=== PATIENT | female | born 1965 | race Caucasian/White ===

== ENCOUNTER 2020-04-01 19:34 | Emergency (ER) | payer BC ==
[2020-04-01] MEDS ORDERED: DUONEB 0.5-3 MG/3 ml Neb IH ONE (19:54)
--- NOTE | 2020-04-01 20:12 | ERPHSYRPT ---
- History of Present Illness Time Seen by Provider: 04/01/20 19:50 Source: patient Exam Limitations: no limitations Patient Subjective Stated Complaint: PT C/O COUGH, SOB, CHOKING, SWOLLEN EYELIDS DUE TO OUTDOOR ALLERGIES Triage Nursing Assessment: PT ARRIVED VIA AMBULANCE WITH C/O COUGH, CHOKING, SOB, RED FACE AND SWOLLEN EYELIDS DUE TO BEING OUTSIDE AND HAS ALLERGIES TO BIRCH TREES/NUT TREES. LUNGS CLEAR, HEART TONES REG Physician History: Patient is a 55-year-old female presents to our ED via EMS for evaluation of an allergic reaction. Patient has a allergy to nuts. Patient states she was exposed to nuts today. She was having difficulty breathing. Patient called EMS. EMS administered Benadryl and 125 mg of Solu-Medrol. Patient symptoms dramatically improved. Upon arrival patient was breathing much easier. Her facial swelling had improved. Patient was initially reported to be wheezing. No wheezing upon arrival. Patient is experiencing a dry cough. Patient attributes this to the allergic reaction. Patient was not coughing prior to the exposure. Patient was experiencing shortness of breath as well. This is also significantly improved. Patient symptoms are gradually improving. Symptoms are now mild to moderate intensity. No specific worsening or improving factors. Patient voices no other complaints at this time. Timing/Duration: today Severity: moderate Modifying Factors: Improves With: medication, other (Solu-Medrol and Benadryl improved patient symptomology.) Associated Symptoms: shortness of breath (Shortness of breath), cough (Cough), No nausea, No vomiting, No abdominal pain (No abdominal pain), No diaphoresis, No chest pain (No fevers no chest pain), No fever, No loss of appetite, No malaise, No rash, No syncope, No seizure, No weakness Allergies/Adverse Reactions: birch Allergy (Severe, Verified 04/01/20 19:58) Difficulty Breathing nut - unspecified Allergy (Severe, Verified 04/01/20 19:58) Difficulty Breathing mold Allergy (Severe, Uncoded 04/01/20 20:06) Difficulty Breathing TREES Adverse Reaction (Uncoded 04/01/20 20:06) Difficulty Breathing BIRCH TREES AND NUT TREES Home Medications: Lisinopril/Hydrochlorothiazide [Lisinopril-Hctz 10-12.5 mg Tab] 1 tab PO DAILY 03/14/14 [History] Insulin NPH Human Isophane [Novolin N] 70 units SQ HS 04/01/20 [History] Insulin Regular, Human [Novolin R] 30 units SQ TIDAC 04/01/20 [History] NPH, Human Insulin Isophane [Novolin N] 20 units SQ DAILY 04/01/20 [History] Rosuvastatin Calcium 10 mg PO HS 04/01/20 [History] Hx Tetanus, Diphtheria Vaccination/Date Given: No Hx Influenza Vaccination/Date Given: No Hx Pneumococcal Vaccination/Date Given: No Immunizations Up to Date: No Travel Risk - International Travel Have you traveled outside of the country in past 3 weeks: No - Coronavirus Screening Are you exhibiting any of the following symptoms?: No Close contact with a COVID-19 positive Pt in past 14-21 Days: No - Review of Systems Constitutional: No Symptoms, No Fever, No Chills Eyes: No Symptoms Ears, Nose, & Throat: No Symptoms Respiratory: No Symptoms, No Cough, No Dyspnea Cardiac: No Symptoms, No Chest Pain, No Edema, No Syncope Abdominal/Gastrointestinal: No Symptoms, No Abdominal Pain, No Nausea, No Vomiting, No Diarrhea Genitourinary Symptoms: No Symptoms, No Dysuria Musculoskeletal: No Symptoms, No Back Pain, No Neck Pain Skin: No Symptoms, No Rash Neurological: No Symptoms, No Dizziness, No Focal Weakness, No Sensory Changes Psychological: No Symptoms Endocrine: No Symptoms Hematologic/Lymphatic: No Symptoms Immunological/Allergic: No Symptoms All Other Systems: Reviewed and Negative - Past Medical History Pertinent Past Medical History: Yes Neurological History: Migraines ENT History: No Pertinent History Cardiac History: Angina, Hypertension Respiratory History: No Pertinent History Endocrine Medical History: Diabetes Type II Musculoskeletal History: Rheumatoid Arthritis GI Medical History: No Pertinent History History: No Pertinent History Psycho-Social History: No Pertinent History Female Reproductive Disorders: No Pertinent History - Past Surgical History Past Surgical History: Yes Neuro Surgical History: No Pertinent History Cardiac: No Pertinent History Respiratory: No Pertinent History Gastrointestinal: No Pertinent History Genitourinary: No Pertinent History Musculoskeletal: Orthopedic Surgery Female Surgical History: Section, Hysterectomy Other Surgical History: carpel tunnel-left hand, - Social History Smoking Status: Never smoker Exposure to second hand smoke: Yes Drug Use: none Patient Lives Alone: No - Female History Hx Now: No - Nursing Vital Signs Nursing Vital Signs: Initial Vital Signs Temperature 98.3 F 04/01/20 19:45 Pulse Rate 125 H 04/01/20 19:45 Respiratory Rate 19 04/01/20 19:45 Blood Pressure 193/82 04/01/20 19:45 O2 Sat by Pulse Oximetry 94 L 04/01/20 19:45 Pain Scale Pain Intensity 0 - Physical Exam General Appearance: no apparent distress, alert, obese, other (Patient has swelling around her eyes. Patient looks flushed.) Eye Exam: PERRL/EOMI, eyes nml inspection Ears, Nose, Throat Exam: normal ENT inspection, TMs normal, pharynx normal, moist mucous membranes Neck Exam: normal inspection, non-tender, supple, full range of motion Respiratory Exam: normal breath sounds, other (Coarse breath sounds bilaterally.), No respiratory distress Cardiovascular Exam: regular rate/rhythm, normal heart sounds, normal peripheral pulses Gastrointestinal/Abdomen Exam: soft, normal bowel sounds, No tenderness, No mass Pelvic Exam: not done Rectal Exam: deferred Back Exam: normal inspection, normal range of motion, No CVA tenderness, No vertebral tenderness Extremity Exam: normal inspection, normal range of motion, pelvis stable Neurologic Exam: alert, oriented x 3, cooperative, normal mood/affect, nml cerebellar function, nml station & gait, sensation nml, No motor deficits Skin Exam: normal color, warm, dry, other (No rash.), No rash Lymphatic Exam: No adenopathy SpO2 Interpretation: normal SpO2: 94 O2 Delivery: Room Air - Course Nursing assessment & vital signs reviewed: Yes EKG Interpreted by Me: RATE, Sinus Tach (101), NORMAL AXIS, NORMAL INTERVALS - CT Exams Chest CT Interpretation: Tele-radiologist Report (For PE. Mild atherosclerotic aortic calcifications. Calcified subcarinal lymph node consistent with the sequela of prior granulomatous infection.) Ordered Tests: Active Orders 24 hr Category Date Time Status Director Of Adult Epilepsy STAT Care 04/01/20 20:28 Active EKG-ER Only STAT Care 04/01/20 20:24 Active IV Insertion STAT Care 04/01/20 20:24 Active Oxygen-ED Only Nasal Cannula 2 lpm Care 04/01/20 20:35 Active Pulse Oximetry (ED) STAT Care 04/01/20 20:24 Active CHEST WITH CONTRAST [CT] Stat Exams 04/01/20 22:25 Taken CBC W DIFF Stat Lab 04/01/20 20:50 Completed CMP Stat Lab 04/01/20 20:50 Completed D-DIMER QUANTITATIVE Stat Lab 04/01/20 20:50 Completed MAGNESIUM Stat Lab 04/01/20 20:50 Completed NT PRO BNP Stat Lab 04/01/20 20:50 Completed TROPONIN Q3H Lab 04/01/20 20:50 Completed TROPONIN Q3H Lab 04/01/20 23:30 Ordered TROPONIN Q3H Lab 04/02/20 02:30 Ordered TROPONIN Q3H Lab 04/02/20 05:30 Ordered TROPONIN Q3H Lab 04/02/20 08:30 Ordered UA W/RFX UR CULTURE Stat Lab 04/01/20 22:10 Completed Peak Expiratory Flow Rate ONCE RT 04/01/20 19:55 Active Respiratory Therapy Assessment DAILY RT 04/01/20 19:53 Active Medication Summary Discontinued Medications Generic Name Dose Route Start Last Admin Trade Name Freq PRN Reason Stop Dose Admin Albuterol/Ipratropium 3 ml 04/01/20 19:54 04/01/20 19:54 Duoneb 0.5-3 Mg/3 Ml Neb IH 04/01/20 19:55 3 ml STAT ONE Administration Lab/Rad Data: Laboratory Result Diagrams 04/01/20 20:50 04/01/20 20:50 Laboratory Results 04/01/20 04/01/20 04/01/20 Range/Units 22:10 20:50 20:50 WBC (4.0-10.5) K/mm3 RBC (4.1-5.4) M/mm3 Hgb (12.0-16.0) gm/dl Hct (35-47) % MCV (78-100) fl MCH (26-32) pg MCHC (32-36) g/dl RDW (11.5-14.0) % Plt Count (150-450) K/mm3 MPV (7.5-11.0) fl Gran % (36.0-66.0) % Eos # (Auto) (0-0.5) Absolute Lymphs (auto) (1.0-4.6) Absolute Monos (auto) (0.0-1.3) Lymphocytes % (24.0-44.0) % Monocytes % (0.0-12.0) % Eosinophils % (0.00-5.0) % Basophils % (0.0-0.4) % Absolute Granulocytes (1.4-6.9) Basophils # (0-0.4) D-Dimer 726 H* (215-500) ng/mL Sodium (137-145) mmol/L Potassium (3.5-5.1) mmol/L Chloride (98-107) mmol/L Carbon Dioxide (22-30) mmol/L Anion Gap (5-15) MEQ/L BUN (7-17) mg/dL Creatinine (0.52-1.04) mg/dL Estimated GFR ML/MIN Glucose (74-106) mg/dL Calcium (8.4-10.2) mg/dL Magnesium (1.6-2.3) mg/dL Total Bilirubin (0.2-1.3) mg/dL AST (14-36) U/L ALT (0-35) U/L Alkaline Phosphatase (38-126) U/L Troponin I < 0.012 (0.000-0.034) ng/mL NT-Pro-B Natriuret Pep (0-900) pg/mL Serum Total Protein (6.3-8.2) g/dL Albumin (3.5-5.0) g/dL Urine Color YELLOW (YELLOW) Urine Appearance CLEAR (CLEAR) Urine pH 6.0 (5-6) Ur Specific [place] 1.011 (1.005-1.025) Urine Protein NEGATIVE (Negative) Urine Ketones NEGATIVE (NEGATIVE) Urine Blood NEGATIVE (0-5) Ovidio/ul Urine Nitrite NEGATIVE (NEGATIVE) Urine Bilirubin NEGATIVE (NEGATIVE) Urine Urobilinogen NEGATIVE (0-1) mg/dL Ur Leukocyte Esterase NEGATIVE (NEGATIVE) Urine WBC (Auto) NONE (0-5) /HPF Urine RBC (Auto) NONE (0-2) /HPF U Epithel Cells (Auto) NONE (FEW) /HPF Urine Bacteria (Auto) NONE (NEGATIVE) /HPF Urine Culture Reflexed NO (NO) Urine Glucose 50 (NEGATIVE) mg/dL 04/01/20 04/01/20 Range/Units 20:50 20:50 WBC 16.2 H (4.0-10.5) K/mm3 RBC 4.68 (4.1-5.4) M/mm3 Hgb 13.0 (12.0-16.0) gm/dl Hct 41.1 (35-47) % MCV 87.8 (78-100) fl MCH 27.8 (26-32) pg MCHC 31.6 L (32-36) g/dl RDW 14.2 H (11.5-14.0) % Plt Count 327 (150-450) K/mm3 MPV 9.8 (7.5-11.0) fl Gran % 85.6 H (36.0-66.0) % Eos # (Auto) 0.27 (0-0.5) Absolute Lymphs (auto) 1.59 (1.0-4.6) Absolute Monos (auto) 0.45 (0.0-1.3) Lymphocytes % 9.8 L (24.0-44.0) % Monocytes % 2.8 (0.0-12.0) % Eosinophils % 1.7 (0.00-5.0) % Basophils % 0.1 (0.0-0.4) % Absolute Granulocytes 13.90 H (1.4-6.9) Basophils # 0.01 (0-0.4) D-Dimer (215-500) ng/mL Sodium 139 (137-145) mmol/L Potassium 4.3 (3.5-5.1) mmol/L Chloride 103 (98-107) mmol/L Carbon Dioxide 27 (22-30) mmol/L Anion Gap 13.2 (5-15) MEQ/L BUN 14 (7-17) mg/dL Creatinine 0.67 (0.52-1.04) mg/dL Estimated GFR > 60.0 ML/MIN Glucose 283 H (74-106) mg/dL Calcium 9.2 (8.4-10.2) mg/dL Magnesium 2.0 (1.6-2.3) mg/dL Total Bilirubin 0.40 (0.2-1.3) mg/dL AST 28 (14-36) U/L ALT 23 (0-35) U/L Alkaline Phosphatase 157 H (38-126) U/L Troponin I (0.000-0.034) ng/mL NT-Pro-B Natriuret Pep 31.2 (0-900) pg/mL Serum Total Protein 8.3 H (6.3-8.2) g/dL Albumin 4.3 (3.5-5.0) g/dL Urine Color (YELLOW) Urine Appearance (CLEAR) Urine pH (5-6) Ur Specific [place] (1.005-1.025) Urine Protein (Negative) Urine Ketones (NEGATIVE) Urine Blood (0-5) Ovidio/ul Urine Nitrite (NEGATIVE) Urine Bilirubin (NEGATIVE) Urine Urobilinogen (0-1) mg/dL Ur Leukocyte Esterase (NEGATIVE) Urine WBC (Auto) (0-5) /HPF Urine RBC (Auto) (0-2) /HPF U Epithel Cells (Auto) (FEW) /HPF Urine Bacteria (Auto) (NEGATIVE) /HPF Urine Culture Reflexed (NO) Urine Glucose (NEGATIVE) mg/dL - Progress Progress: improved Progress Note: 04/01/20 23:06 Patient reassessed. Facial swelling significantly improved. Lungs clear to auscultation. Vital within normal limits. D-dimer positive. CTA negative for PE. There is a leukocytosis observed on her CBC. However patient did receive a dose of steroids which likely explains leukocytosis. Steroids may also increase blood glucose. Patient glucose 283. No anion gap. Will discharge home. Patient agrees to follow-up with her primary care doctor within 48 hours for reevaluation. Work-up otherwise negative. 04/01/20 23:07 Counseled pt/family regarding: lab results, diagnosis, need for follow-up, rad results - Departure Departure Disposition: Home Clinical Impression: Allergic reaction Condition: Good Critical Care Time: No Referrals: GENNA MCMAHAN [Primary Care Provider] - Additional Instructions: Discharge/Care Plan BESSY ACEVES was seen on 04/01/20 in the Emergency Room. The patient was counseled regarding Diagnosis,Lab results, Imaging studies, need for follow up and when to return to the Emergency Room. Prescriptions given: Discharge Note I have spoken with the patient and/or caregivers. I have explained the patient's condition, diagnosis and treatment plan based on the information available to me at this time. I have answered the patient's and/or caregiver's questions and addressed any concerns. The patient and/or caregivers have as good understanding of the patient's diagnosis, condition and treatment plan as can be expected at this point. The vital signs have been stable. The patient's condition is stable and appropriate for discharge from the emergency department. The patient will pursue further outpatient evaluation with the primary care physician or other designated or consulting physician as outlined in the discharge instructions. The patient and/or caregivers are agreeable to this plan of care and follow-up instructions have been explained in detail. The patient and/or caregivers have received these instruction. The patient/and or caregivers are aware that any significant change in condition or worsening of symptoms should prompt an immediate return to this or the closest emergency department or call 911. Prescriptions: Diphenhydramine HCl 25 mg [Benadryl 25 mg Capsule] 25 mg PO Q8H PRN PRN #20 capsule PRN Reason: Itching EPINEPHrine [Epipen 0.3 MG] 0.3 mg IJ DAILY PRN PRN #2 ml PRN Reason: Allergies Methylprednisolone Packet [Medrol Dosepack] 4 mg PO UD #1 packet
[2020-04-01 20:56] LABS: BASOPHIL % 0.1 % (0.0-0.4); Basophil (Absolute #) 0.01 (0-0.4); Eosinophil % 1.7 % (0.00-5.0); Eosinophil (Absolute #) 0.27 (0-0.5); Hematocrit 41.1 % (35-47); Lymphocyte (Absolute #) 1.59 (1.0-4.6); Lymphocytes % 9.8 % (24.0-44.0); Mean Cell Volume 87.8 fl (78-100); Mean Corpuscular Hemoglobin 27.8 pg (26-32); Mean Corpuscular Hgb Concent. 31.6 g/dl (32-36); Mean Platelet Volume 9.8 fl (7.5-11.0); Monocyte (Absolute #) 0.45 (0.0-1.3); Monocytes % 2.8 % (0.0-12.0); Neutrophil % 85.6 % (36.0-66.0); Platelet Count 327 K/mm3 (150-450); Red Blood Count 4.68 M/mm3 (4.1-5.4); Red Cell Distribution Width 14.2 % (11.5-14.0); White Blood Count 16.2 K/mm3 (4.0-10.5)
[2020-04-01 21:23] LABS: ALBUMIN 4.3 g/dL (3.5-5.0); ALKALINE PHOSPHATASE 157 U/L (38-126); ANION GAP 13.2 MEQ/L (5-15); BLOOD UREA NITROGEN 14 mg/dL (7-17); CHLORIDE 103 mmol/L (98-107); Calcium 9.2 mg/dL (8.4-10.2); Carbon Dioxide 27 mmol/L (22-30); Creatinine 1 0.67 mg/dL (0.52-1.04); Glucose 283 mg/dL (74-106); NT PRO BNP 31.2 pg/mL (0-900); Potassium 4.3 mmol/L (3.5-5.1); SGOT/AST 28 U/L (14-36); SGPT/ALT 23 U/L (0-35); SODIUM 139 mmol/L (137-145); Total Protein 8.3 g/dL (6.3-8.2)
[2020-04-01 22:23] LABS: Appearance CLEAR (CLEAR); Bilirubin NEGATIVE (NEGATIVE); Blood NEGATIVE Ery/ul (0-5); Glucose 50 mg/dL (NEGATIVE); Ketones NEGATIVE (NEGATIVE); Leukocyte Esterase NEGATIVE (NEGATIVE); Nitrite NEGATIVE (NEGATIVE); Protein,Urine Dip NEGATIVE (Negative); Specific Gravity 1.011 (1.005-1.025); Urobilinogen NEGATIVE mg/dL (0-1)
[2020-04-01 23:39] VITALS: BP 143/90; PULSE 103; O2SAT 95
--- NOTE | 2020-04-02 08:40 | XRAY ---
Indication: Cough, short of breath, chest pressure, and elevated d-dimer. Multiple contiguous axial images obtained through the chest using 80 cc Isovue 370 contrast and PE protocol. Comparison: None There is suboptimal opacification of the distal lobar and segmental branches limiting evaluation for pulmonary embolus. No obvious central pulmonary embolus. Heart is nonenlarged. Aorta is normal in course and caliber. Tiny subcarinal calcified node. No pathologic mediastinal/hilar lymphadenopathy. Lungs demonstrate minimal bibasilar fibrosis/scarring. No suspicious pulmonary mass, infiltrate, consolidation, or effusion. Bony thorax intact with mild degenerative changes throughout the spine. Limited upper abdomen demonstrates fatty liver and 14 cm splenomegaly. Impression: 1. Pulmonary embolus evaluation limited due to suboptimal contrast opacification. No central pulmonary embolus. 2. Bibasilar fibrosis/scarring, fatty liver, splenomegaly, and evidence for old granulomatous disease. 3. Remaining CT chest with contrast exam is negative. Comment: Preliminary interpretation was made by [facility]. No critical discrepancy.
== END 2020-04-01 23:39 | disposition home or self-care (01) ==
LOC: ED 19:34
DX: R22.0 Localized swelling, mass and lump, head (principal); T78.40XA Allergy, unspecified, initial encounter; D72.829 Elevated white blood cell count, unspecified
CPT/HCPCS: 36000; 36415; 71260; 80053; 81001; 83735; 83880; 84484; 85025; 85379; 93005; 93041; 94150; 94640; 94760; 99284; A9270-GY

== ENCOUNTER 2022-04-14 00:57 | Emergency (ER) | payer BC ==
--- NOTE | 2022-04-14 01:09 | ERPHSYRPT ---
- History of Present Illness Time Seen by Provider: 04/14/22 01:05 Historian: patient, EMS Exam Limitations: no limitations Physician History: This is a morbidly obese 57-year-old white female patient who presents with chronic history of chest pressure and chronic angina as well as intermittent shortness of air for several years. What was different tonight was the patient has been having nausea vomiting and diarrhea type symptoms. Patient was brought into the emergency department by ambulance service. Patient states that over the last several days her symptoms have been worsening. She has had extensive work-up on her heart and lungs. Patient has a history of elevated cholesterol, diabetes, hypertension, morbid obesity, chronic angina and rheumatoid arthritis. Timing/Duration: worse Quality: aching Abdominal Pain Onset Location: RLQ, LLQ, epigastric Pain Radiation: no radiation Severity of Pain-Max: moderate Severity of Pain-Current: mild Modifying Factors: Improves With: vomiting Associated Symptoms: diarrhea, nausea, vomiting Previous symptoms: same symptoms as today Allergies/Adverse Reactions: birch Allergy (Severe, Verified 04/01/20 19:58) Difficulty Breathing nut - unspecified Allergy (Severe, Verified 04/01/20 19:58) Difficulty Breathing mold Allergy (Severe, Uncoded 04/01/20 20:06) Difficulty Breathing TREES Adverse Reaction (Uncoded 04/01/20 20:06) Difficulty Breathing BIRCH TREES AND NUT TREES Home Medications: Lisinopril/Hydrochlorothiazide [Lisinopril-Hctz 10-12.5 mg Tab] 1 tab PO DAILY 03/14/14 [History] Insulin NPH Human Isophane [Novolin N] 70 units SQ HS 04/01/20 [History] Insulin Regular, Human [Novolin R] 30 units SQ TIDAC 04/01/20 [History] NPH, Human Insulin Isophane [Novolin N] 20 units SQ DAILY 04/01/20 [History] Rosuvastatin Calcium 10 mg PO HS 04/01/20 [History] Hx Tetanus, Diphtheria Vaccination/Date Given: No Hx Influenza Vaccination/Date Given: No Hx Pneumococcal Vaccination/Date Given: No Travel Risk - International Travel Have you traveled outside of the country in past 3 weeks: No - Coronavirus Screening Are you exhibiting any of the following symptoms?: No Close contact with a COVID-19 positive Pt in past 14-21 Days: No - Review of Systems Constitutional: No Symptoms Eyes: No Symptoms Ears, Nose, & Throat: No Symptoms Respiratory: Dyspnea (Occasional, intermittent) Cardiac: Chest Pain (Described as occasional, intermittent and a pressure that is nonradiating) Abdominal/Gastrointestinal: Abdominal Pain (Bilateral lower quadrants and ep igastric region), Nausea, Vomiting, Diarrhea Genitourinary Symptoms: No Symptoms Musculoskeletal: No Symptoms Skin: No Symptoms Neurological: No Symptoms Psychological: No Symptoms Endocrine: No Symptoms Hematologic/Lymphatic: No Symptoms Immunological/Allergic: No Symptoms All Other Systems: Reviewed and Negative - Past Medical History Pertinent Past Medical History: Yes Neurological History: Migraines ENT History: No Pertinent History Cardiac History: Angina, Hypertension Respiratory History: No Pertinent History Endocrine Medical History: Diabetes Type II Musculoskeletal History: Rheumatoid Arthritis GI Medical History: No Pertinent History History: No Pertinent History Psycho-Social History: No Pertinent History Female Reproductive Disorders: No Pertinent History - Past Surgical History Past Surgical History: Yes Neuro Surgical History: No Pertinent History Cardiac: No Pertinent History Respiratory: No Pertinent History Gastrointestinal: No Pertinent History Genitourinary: No Pertinent History Musculoskeletal: Orthopedic Surgery Female Surgical History: Section, Hysterectomy Other Surgical History: carpel tunnel-left hand, - Social History Smoking Status: Never smoker Exposure to second hand smoke: Yes Drug Use: none Patient Lives Alone: No - Nursing Vital Signs Nursing Vital Signs: Initial Vital Signs Temperature 98.5 F 04/14/22 01:02 Pulse Rate 89 04/14/22 01:02 Respiratory Rate 18 04/14/22 01:02 Blood Pressure 171/53 04/14/22 01:02 O2 Sat by Pulse Oximetry 95 04/14/22 01:02 Pain Scale Pain Intensity 0 - Physical Exam General Appearance: no apparent distress, alert, anxiety, obese Eye Exam: PERRL/EOMI, eyes nml inspection Ears, Nose, Throat Exam: normal ENT inspection, moist mucous membranes Neck Exam: normal inspection, non-tender, supple, full range of motion Respiratory Exam: normal breath sounds, lungs clear, airway intact, No chest tenderness, No respiratory distress Cardiovascular Exam: regular rate/rhythm, normal heart sounds, normal peripheral pulses Gastrointestinal/Abdomen Exam: soft, normal bowel sounds, tenderness (Mild bilateral quadrants to palpation), No rebound Pelvic Exam: not done Rectal Exam: not done Back Exam: normal inspection, normal range of motion, No CVA tenderness, No vertebral tenderness Extremity Exam: normal inspection, normal range of motion, pelvis stable Neurologic Exam: alert, oriented x 3, cooperative, 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, normal mood/affect Skin Exam: normal color, warm, dry Lymphatic Exam: No adenopathy SpO2 Interpretation: normal O2 Delivery: Room Air - Course Nursing assessment & vital signs reviewed: Yes Ordered Tests: Active Orders 24 hr Category Date Time Status EKG-ER Only STAT Care 04/14/22 01:02 Active IV Insertion STAT Care 04/14/22 01:02 Active Pulse Oximetry (ED) STAT Care 04/14/22 01:04 Active ABDOMEN AND PELVIS W/0 CONTRAS [CT] Stat Exams 04/14/22 01:31 Taken CHEST 1 VIEW (PORTABLE) Stat Exams 04/14/22 01:04 Taken CHEST WITH CONTRAST [CT] Stat Exams 04/14/22 02:46 Taken AMYLASE Stat Lab 04/14/22 01:54 Completed CBC W DIFF Stat Lab 04/14/22 01:54 Completed CMP Stat Lab 04/14/22 01:54 Completed D-DIMER QUANTITATIVE Stat Lab 04/14/22 01:54 Completed LIPASE Stat Lab 04/14/22 01:54 Completed Lactic Acid Stat Lab 04/14/22 01:45 Completed NT PRO BNP Stat Lab 04/14/22 01:54 Completed TROPONIN Q3H Lab 04/14/22 01:55 Completed TROPONIN Q3H Lab 04/14/22 04:15 Ordered TROPONIN Q3H Lab 04/14/22 07:15 Ordered TROPONIN Q3H Lab 04/14/22 10:15 Ordered TROPONIN Q3H Lab 04/14/22 13:15 Ordered UA W/RFX CULTURE Stat Lab 04/14/22 01:21 Completed Medication Summary Generic Name Dose Route Start Last Admin Trade Name Freq PRN Reason Stop Dose Admin Sodium Chloride 500 mls @ 500 mls/hr 04/14/22 03:34 04/14/22 03:37 Sodium Chloride 0.9% 500 Ml IV 04/14/22 04:33 500 mls/hr .Q1H ONE Administration Metronidazole 500 mg 04/14/22 03:47 Metronidazole 500 Mg Tablet PO 04/14/22 03:48 STAT ONE Discontinued Medications Generic Name Dose Route Start Last Admin Trade Name Freq PRN Reason Stop Dose Admin Sodium Chloride Confirm 04/14/22 03:35 Sodium Chloride 0.9% 500 Ml Administered 04/14/22 03:36 Dose 500 mls @ ud IV .STK-MED ONE Lab/Rad Data: Laboratory Result Diagrams 04/14/22 01:54 04/14/22 01:54 Laboratory Results 04/14/22 04/14/22 04/14/22 Range/Units 01:55 01:54 01:54 WBC (4.0-10.5) x10^3/uL RBC (4.1-5.4) x10^6/uL Hgb (12.0-16.0) g/dL Hct (35-47) % MCV (78-100) fL MCH (26-32) pg MCHC (32-36) g/dL RDW (11.5-14.0) % Plt Count (150-450) x10^3/uL MPV (7.5-11.0) fL Gran % (36.0-66.0) % Immature Gran % (Auto) (0.00-0.4) % Nucleat RBC Rel Count (0.00-0.1) % Eos # (Auto) (0-0.5) x10^3/uL Immature Gran # (Auto) (0.00-0.03) x10^3u/L Absolute Lymphs (auto) (1.0-4.6) x10^3/uL Absolute Monos (auto) (0.0-1.3) x10^3/uL Absolute Nucleated RBC (0.00-0.01) x10^3u/L Lymphocytes % (24.0-44.0) % Monocytes % (0.0-12.0) % Eosinophils % (0.00-5.0) % Basophils % (0.0-0.4) % Absolute Granulocytes (1.4-6.9) x10^3/uL Basophils # (0-0.4) x10^3/uL D-Dimer 2.85 H* (0.0-0.50) mg/L Sodium (137-145) mmol/L Potassium (3.5-5.1) mmol/L Chloride (98-107) mmol/L Carbon Dioxide (22-30) mmol/L Anion Gap (5-15) MEQ/L BUN (7-17) mg/dL Creatinine (0.52-1.04) mg/dL Estimated GFR ML/MIN Glucose (74-106) mg/dL Lactic Acid (0.4-2.0) Calcium (8.4-10.2) mg/dL Total Bilirubin (0.2-1.3) mg/dL AST (14-36) U/L ALT (0-35) U/L Alkaline Phosphatase (38-126) U/L Troponin I < 0.012 (0.000-0.034) ng/mL NT-Pro-B Natriuret Pep (0-900) pg/mL Serum Total Protein (6.3-8.2) g/dL Albumin (3.5-5.0) g/dL Amylase (30-110) U/L Lipase (23-300) U/L Urinalys Dipstick Clnc Urine Color (YELLOW) Urine Appearance (CLEAR) Urine pH (5-6) Ur Specific [place] (1.005-1.025) POC Urine Protein Conf (Negative) Urine Ketones (NEGATIVE) Urine Nitrite (NEGATIVE) Urine Bilirubin (NEGATIVE) Urine Urobilinogen (0-1) mg/dL Urine Leukocytes (NEGATIVE) Urine WBC (Auto) (0-5) /HPF Urine RBC (Auto) (0-2) /HPF U Epithel Cells (Auto) (FEW) /HPF Urine Bacteria (Auto) (NEGATIVE) /HPF Urine RBC (0-5) Ovidio/ul Urine Mucus (Auto) (NEGATIVE) /HPF Ur Culture Indicated? Urine Glucose (NEGATIVE) mg/dL Influenza Type A Ag NEGATIVE (NEGATIVE) Influenza Type B Ag NEGATIVE (NEGATIVE) RSV (PCR) NEGATIVE (Negative) SARS-CoV-2 (PCR) NEGATIVE (NEGATIVE) 04/14/22 04/14/22 04/14/22 Range/Units 01:54 01:54 01:54 WBC 16.5 H (4.0-10.5) x10^3/uL RBC 4.58 (4.1-5.4) x10^6/uL Hgb 12.5 (12.0-16.0) g/dL Hct 40.7 (35-47) % MCV 88.9 (78-100) fL MCH 27.3 (26-32) pg MCHC 30.7 L (32-36) g/dL RDW 13.5 (11.5-14.0) % Plt Count 367 (150-450) x10^3/uL MPV 9.5 (7.5-11.0) fL Gran % 81.9 H (36.0-66.0) % Immature Gran % (Auto) 0.4 (0.00-0.4) % Nucleat RBC Rel Count 0.0 (0.00-0.1) % Eos # (Auto) 0.11 (0-0.5) x10^3/uL Immature Gran # (Auto) 0.06 H (0.00-0.03) x10^3u/L Absolute Lymphs (auto) 1.97 (1.0-4.6) x10^3/uL Absolute Monos (auto) 0.81 (0.0-1.3) x10^3/uL Absolute Nucleated RBC 0.00 (0.00-0.01) x10^3u/L Lymphocytes % 11.9 L (24.0-44.0) % Monocytes % 4.9 (0.0-12.0) % Eosinophils % 0.7 (0.00-5.0) % Basophils % 0.2 (0.0-0.4) % Absolute Granulocytes 13.52 H (1.4-6.9) x10^3/uL Basophils # 0.03 (0-0.4) x10^3/uL D-Dimer (0.0-0.50) mg/L Sodium 138 (137-145) mmol/L Potassium 4.2 (3.5-5.1) mmol/L Chloride 103 (98-107) mmol/L Carbon Dioxide 25 (22-30) mmol/L Anion Gap 15.1 H (5-15) MEQ/L BUN 13 (7-17) mg/dL Creatinine 0.84 (0.52-1.04) mg/dL Estimated GFR > 60.0 ML/MIN Glucose 165 H (74-106) mg/dL Lactic Acid (0.4-2.0) Calcium 8.5 (8.4-10.2) mg/dL Total Bilirubin 0.60 (0.2-1.3) mg/dL AST 35 (14-36) U/L ALT 28 (0-35) U/L Alkaline Phosphatase 153 H (38-126) U/L Troponin I (0.000-0.034) ng/mL NT-Pro-B Natriuret Pep 27.7 (0-900) pg/mL Serum Total Protein 8.2 (6.3-8.2) g/dL Albumin 3.9 (3.5-5.0) g/dL Amylase 81 (30-110) U/L Lipase 82 (23-300) U/L Urinalys Dipstick Clnc Urine Color (YELLOW) Urine Appearance (CLEAR) Urine pH (5-6) Ur Specific [place] (1.005-1.025) POC Urine Protein Conf (Negative) Urine Ketones (NEGATIVE) Urine Nitrite (NEGATIVE) Urine Bilirubin (NEGATIVE) Urine Urobilinogen (0-1) mg/dL Urine Leukocytes (NEGATIVE) Urine WBC (Auto) (0-5) /HPF Urine RBC (Auto) (0-2) /HPF U Epithel Cells (Auto) (FEW) /HPF Urine Bacteria (Auto) (NEGATIVE) /HPF Urine RBC (0-5) Ovidio/ul Urine Mucus (Auto) (NEGATIVE) /HPF Ur Culture Indicated? Urine Glucose (NEGATIVE) mg/dL Influenza Type A Ag (NEGATIVE) Influenza Type B Ag (NEGATIVE) RSV (PCR) (Negative) SARS-CoV-2 (PCR) (NEGATIVE) 04/14/22 04/14/22 Range/Units 01:45 01:21 WBC (4.0-10.5) x10^3/uL RBC (4.1-5.4) x10^6/uL Hgb (12.0-16.0) g/dL Hct (35-47) % MCV (78-100) fL MCH (26-32) pg MCHC (32-36) g/dL RDW (11.5-14.0) % Plt Count (150-450) x10^3/uL MPV (7.5-11.0) fL Gran % (36.0-66.0) % Immature Gran % (Auto) (0.00-0.4) % Nucleat RBC Rel Count (0.00-0.1) % Eos # (Auto) (0-0.5) x10^3/uL Immature Gran # (Auto) (0.00-0.03) x10^3u/L Absolute Lymphs (auto) (1.0-4.6) x10^3/uL Absolute Monos (auto) (0.0-1.3) x10^3/uL Absolute Nucleated RBC (0.00-0.01) x10^3u/L Lymphocytes % (24.0-44.0) % Monocytes % (0.0-12.0) % Eosinophils % (0.00-5.0) % Basophils % (0.0-0.4) % Absolute Granulocytes (1.4-6.9) x10^3/uL Basophils # (0-0.4) x10^3/uL D-Dimer (0.0-0.50) mg/L Sodium (137-145) mmol/L Potassium (3.5-5.1) mmol/L Chloride (98-107) mmol/L Carbon Dioxide (22-30) mmol/L Anion Gap (5-15) MEQ/L BUN (7-17) mg/dL Creatinine (0.52-1.04) mg/dL Estimated GFR ML/MIN Glucose (74-106) mg/dL Lactic Acid 2.3 H (0.4-2.0) Calcium (8.4-10.2) mg/dL Total Bilirubin (0.2-1.3) mg/dL AST (14-36) U/L ALT (0-35) U/L Alkaline Phosphatase (38-126) U/L Troponin I (0.000-0.034) ng/mL NT-Pro-B Natriuret Pep (0-900) pg/mL Serum Total Protein (6.3-8.2) g/dL Albumin (3.5-5.0) g/dL Amylase (30-110) U/L Lipase (23-300) U/L Urinalys Dipstick Clnc MAIN LAB Urine Color YELLOW (YELLOW) Urine Appearance CLEAR (CLEAR) Urine pH 7.0 (5-6) Ur Specific [place] 1.020 (1.005-1.025) POC Urine Protein Conf 100 (Negative) Urine Ketones NEGATIVE (NEGATIVE) Urine Nitrite NEGATIVE (NEGATIVE) Urine Bilirubin NEGATIVE (NEGATIVE) Urine Urobilinogen 0.2 (0-1) mg/dL Urine Leukocytes NEGATIVE (NEGATIVE) Urine WBC (Auto) 0-2 (0-5) /HPF Urine RBC (Auto) 0-2 (0-2) /HPF U Epithel Cells (Auto) RARE (FEW) /HPF Urine Bacteria (Auto) NONE (NEGATIVE) /HPF Urine RBC NEGATIVE (0-5) Ovidio/ul Urine Mucus (Auto) SLIGHT (NEGATIVE) /HPF Ur Culture Indicated? NO Urine Glucose NEGATIVE (NEGATIVE) mg/dL Influenza Type A Ag (NEGATIVE) Influenza Type B Ag (NEGATIVE) RSV (PCR) (Negative) SARS-CoV-2 (PCR) (NEGATIVE) - Progress Progress: improved Progress Note: 04/14/22 03:48 CAT scan of the abdomen without contrast shows picture consistent with enterocolitis. CTA of the chest shows no acute cardiopulmonary process and no pulmonary embolus. Counseled pt/family regarding: lab results, diagnosis, need for follow-up, rad results - Departure Departure Disposition: Home Clinical Impression: Enterocolitis Condition: Stable Critical Care Time: No Referrals: GENNA MCMAHAN [Primary Care Provider] - Follow up/PCP as directed Additional Instructions: Drink plenty of clear liquids. Avoid fatty greasy spicy foods. Take your antibiotics as prescribed. Follow-up with your primary care doctor for further evaluation and management. Prescriptions: Ondansetron ODT 4 MG [Zofran Odt 4 mg] 4 mg PO Q6H PRN PRN #10 tablet PRN Reason: Vomiting Metronidazole 500 mg [Flagyl 500 MG] 500 mg PO TID #21 tablet
[2022-04-14 01:33] LABS: Appearance CLEAR (CLEAR); Bilirubin NEGATIVE (NEGATIVE); Dipstick done @ ? MAIN LAB; Glucose NEGATIVE (NEGATIVE); Ketones NEGATIVE (NEGATIVE); Nitrite NEGATIVE (NEGATIVE); Protein,Urine Dip 100 (Negative); RBC NEGATIVE Ery/ul (0-5); Urobilinogen 0.2 mg/dL (0-1)
[2022-04-14 01:35] LABS: Epithelial Cells RARE /HPF (FEW); Mucus SLIGHT /HPF (NEGATIVE); RBC 0-2 /HPF (0-2); Urine Cultured Indicated? NO; WBC 0-2 /HPF (0-5)
[2022-04-14 01:57] LABS: Absolute Neutrophil Ct (ANC) 13.52 x10^3/uL (1.4-6.9); Basophil (Absolute #) 0.03 x10^3/uL (0-0.4); Eosinophil % 0.7 % (0.00-5.0); Eosinophil (Absolute #) 0.11 x10^3/uL (0-0.5); Hematocrit 40.7 % (35-47); Hemoglobin 12.5 g/dL (12.0-16.0); Lymphocyte (Absolute #) 1.97 x10^3/uL (1.0-4.6); Lymphocytes % 11.9 % (24.0-44.0); Mean Cell Volume 88.9 fL (78-100); Mean Corpuscular Hemoglobin 27.3 pg (26-32); Mean Corpuscular Hgb Concent. 30.7 g/dL (32-36); Mean Platelet Volume 9.5 fL (7.5-11.0); Monocyte (Absolute #) 0.81 x10^3/uL (0.0-1.3); Monocytes % 4.9 % (0.0-12.0); Neutrophil % 81.9 % (36.0-66.0); Platelet Count 367 x10^3/uL (150-450); Red Blood Count 4.58 x10^6/uL (4.1-5.4); Red Cell Distribution Width 13.5 % (11.5-14.0); White Blood Count 16.5 x10^3/uL (4.0-10.5)
[2022-04-14 02:07] LABS: ALBUMIN 3.9 g/dL (3.5-5.0); ALKALINE PHOSPHATASE 153 U/L (38-126); AMYLASE 81 U/L (30-110); ANION GAP 15.1 MEQ/L (5-15); BLOOD UREA NITROGEN 13 mg/dL (7-17); CHLORIDE 103 mmol/L (98-107); Calcium 8.5 mg/dL (8.4-10.2); Carbon Dioxide 25 mmol/L (22-30); Creatinine 1 0.84 mg/dL (0.52-1.04); EST GLOMERULAR FILTRATION RATE > 60.0 ML/MIN; Glucose 165 mg/dL (74-106); LIPASE 82 U/L (23-300); Potassium 4.2 mmol/L (3.5-5.1); SGOT/AST 35 U/L (14-36); SGPT/ALT 28 U/L (0-35); SODIUM 138 mmol/L (137-145); Total Protein 8.2 g/dL (6.3-8.2)
[2022-04-14 02:11] VITALS: PULSE 90
[2022-04-14 02:33] LABS: INFLUENZA A NEGATIVE (NEGATIVE); INFLUENZA B NEGATIVE (NEGATIVE); RESPIRATORY SYNCTIAL VIRUS NEGATIVE (Negative); SARS-CoV-2 Xpert Express NEGATIVE (NEGATIVE)
[2022-04-14 03:06] VITALS: BP 136/57
[2022-04-14] MEDS ORDERED: Sodium Chloride 0.9% 500 ML 500 ML IV ONE ×2 (03:34→03:35)
[2022-04-14] MEDS ORDERED: Flagyl 500 MG PO ONE (03:47)
[2022-04-14] MEDS ORDERED: Zofran 4 MG/2 ML VIAL IV ONE (03:52)
[2022-04-14] MEDS ORDERED: Zofran 4 MG/2 ML VIAL ONE (03:53)
[2022-04-14] MEDS ORDERED: Flagyl 500 MG ONE (03:58)
[2022-04-14] MEDS ORDERED: Compazine 10 MG/2 ML IV ONE (04:03)
[2022-04-14] MEDS ORDERED: Compazine 10 MG/2 ML ONE (04:04)
[2022-04-14 04:47] VITALS: O2SAT 100
--- NOTE | 2022-04-14 08:46 | XRAY ---
Indication: Chest pain and short of breath. Elevated d-dimer. Multiple contiguous axial images obtained through the chest using 100 cc Isovue 370 contrast and PE protocol. Comparison: April 01, 2020. Good opacification of the pulmonary arteries to include the lobar and segmental branches. No pulmonary embolus. Heart not enlarged. Aorta is normal in course and caliber. Stable tiny subcarinal calcified node. No pathologic mediastinal/hilar lymphadenopathy. Lungs inflated and remain clear. Bony thorax intact again with mild degenerative changes throughout the spine. CT abdomen/pelvis reported separately. Impression: 1. Continued negative pulmonary embolus. No new/acute cardiopulmonary abnormalities. 2. Stable degenerative spondylosis and old granulomatous disease. Comment: Preliminary interpretation made by [facility]. No critical discrepancy.
--- NOTE | 2022-04-14 08:48 | XRAY ---
Indication: Abdomen pain. Nausea, vomiting, and diarrhea. Multiple contiguous axial images obtained through the abdomen and pelvis without contrast. Comparison: None. CT chest reported separately. Stomach mildly fluid distended. Noncontrasted stomach and bowel loops appear nonobstructed with normal appendix. Minimal sigmoid diverticulosis without diverticulitis. Previous hysterectomy. No free fluid/air. Mild diffuse fatty liver and 13.5 cm splenomegaly. Remaining liver, gallbladder, pancreas, spleen, adrenal glands, kidneys, ureters, and bladder are unremarkable for noncontrast exam. Mild scattered aortoiliac calcifications without AAA. Osseous structures intact with mild degenerative changes throughout the spine. No ventral or inguinal hernias. Impression: 1. Sigmoid diverticulosis, fatty liver, splenomegaly, and degenerative spondylosis. 2. Remaining CT abdomen/pelvis without contrast exam is negative. Comment: Preliminary interpretation made by [facility]. No critical discrepancy.
--- NOTE | 2022-04-14 08:51 | XRAY ---
Indication: Short of breath. Comparison: March 14, 2014. Portable chest again demonstrates normal heart and lungs. Bony thorax intact again with osteopenia and degenerative changes. New electronic device overlies left upper chest.
== END 2022-04-14 05:05 | disposition home or self-care (01) ==
LOC: ED 00:57
DX: K52.9 Noninfective gastroenteritis and colitis, unspecified (principal); R11.2 Nausea with vomiting, unspecified; R10.32 Left lower quadrant pain; R10.31 Right lower quadrant pain; R10.13 Epigastric pain; E78.5 Hyperlipidemia, unspecified; E11.9 Type 2 diabetes mellitus without complications; I10 Essential (primary) hypertension; Z79.4 Long term (current) use of insulin; Z79.899 Other long term (current) drug therapy
CPT/HCPCS: 0241U; 36000; 36415; 71045; 71260; 74176; 80053; 81015; 82150; 83605; 83690; 83880; 84484; 85025; 85379; 93005; 94760; 96360; 96374; 99284; J2405; A9270-GY

== ENCOUNTER 2023-03-03 11:27 | Emergency (ER) | payer BC ==
--- NOTE | 2023-03-03 11:34 | ERPHSYRPT ---
- History of Present Illness Time Seen by Provider: 03/03/23 11:33 Historian: patient Exam Limitations: no limitations Physician History: This is a morbidly obese white female patient who for the last week is had sores in her mouth intermittently. A couple of weeks ago she had some dental work performed. In the last few days patient has had nausea vomiting and diarrhea and increased weakness. She has had a headache. She also complains of some lower abdominal pain. She did notice that she is also having some left upper shoulder pain as well. The lower abdominal pain has shot up into the lower chest on the left side. Patient has a history of hypertension, hyperlipidemia and diabetes. She has not had a fever. She denies cough. She has no known exposure individuals with similar symptoms are not with viral illness. Timing/Duration: week(s) (1), intermittent, worse (In the last 3 days) Quality: cramping, sharpness Abdominal Pain Onset Location: RLQ, LLQ Pain Radiation: shoulder (Left left), chest Severity of Pain-Max: mild Severity of Pain-Current: mild Modifying Factors: Improves With: vomiting, other (Diarrhea) Associated Symptoms: diarrhea, loss of appetite, nausea, vomiting, weakness Previous symptoms: no prior history Allergies/Adverse Reactions: birch Allergy (Severe, Verified 03/03/23 12:25) Difficulty Breathing nut - unspecified Allergy (Severe, Verified 03/03/23 12:25) Difficulty Breathing mold Allergy (Severe, Uncoded 03/03/23 12:25) Difficulty Breathing TREES Adverse Reaction (Uncoded 03/03/23 12:25) Difficulty Breathing BIRCH TREES AND NUT TREES Home Medications: Lisinopril/Hydrochlorothiazide [Lisinopril-Hctz 10-12.5 mg Tab] 1 tab PO DAILY 03/14/14 [History] Insulin Regular, Human [Novolin R] 30 units SQ TIDAC 04/01/20 [History] NPH, Human Insulin Isophane [Novolin N] 30 units SQ DAILY 04/01/20 [History] Rosuvastatin Calcium 10 mg PO HS 04/01/20 [History] Insulin Degludec [Tresiba Flextouch U-200] 50 units SQ QAM 03/03/23 [History] Semaglutide [Ozempic] 0.5 mg SQ WEEKLY 03/03/23 [History] Venlafaxine HCl ER 37.5 mg [Effexor ER 37.5 MG] 37.5 mg PO HS 03/03/23 [History] Hx Tetanus, Diphtheria Vaccination/Date Given: No Hx Influenza Vaccination/Date Given: No Hx Pneumococcal Vaccination/Date Given: No Travel Risk - International Travel Have you traveled outside of the country in past 3 weeks: No - Coronavirus Screening Are you exhibiting any of the following symptoms?: No Close contact with a COVID-19 positive Pt in past 14-21 Days: No - Vaccine Status Have you recieved a Covid-19 vaccination: Yes 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 - Vaccination Dates Date of 2cond Vaccination (if applicable): 2020 - Review of Systems Constitutional: Weakness Eyes: No Symptoms Ears, Nose, & Throat: No Symptoms Respiratory: No Symptoms Cardiac: No Symptoms Abdominal/Gastrointestinal: Abdominal Pain, Nausea, Vomiting, Diarrhea, Appetite Changes Genitourinary Symptoms: No Symptoms Musculoskeletal: No Symptoms Skin: No Symptoms Neurological: No Symptoms Psychological: No Symptoms Endocrine: No Symptoms Hematologic/Lymphatic: No Symptoms Immunological/Allergic: No Symptoms All Other Systems: Reviewed and Negative - Past Medical History Pertinent Past Medical History: Yes Neurological History: Migraines ENT History: No Pertinent History Cardiac History: Angina, Hypertension Respiratory History: No Pertinent History Endocrine Medical History: Diabetes Type II Musculoskeletal History: Rheumatoid Arthritis GI Medical History: No Pertinent History History: No Pertinent History Psycho-Social History: No Pertinent History Female Reproductive Disorders: No Pertinent History - Past Surgical History Past Surgical History: Yes Neuro Surgical History: No Pertinent History Cardiac: No Pertinent History Respiratory: No Pertinent History Gastrointestinal: No Pertinent History Genitourinary: No Pertinent History Musculoskeletal: Orthopedic Surgery Female Surgical History: Section, Hysterectomy Other Surgical History: carpel tunnel-left hand, - Social History Smoking Status: Never smoker Exposure to second hand smoke: Yes Drug Use: none Patient Lives Alone: No - Nursing Vital Signs Nursing Vital Signs: Initial Vital Signs Temperature 97.2 F 03/03/23 12:02 Pulse Rate 94 H 03/03/23 12:02 Blood Pressure 141/84 03/03/23 12:02 O2 Sat by Pulse Oximetry 96 03/03/23 12:02 Pain Scale Pain Intensity 0 - Physical Exam General Appearance: no apparent distress, alert, anxiety, obese Eye Exam: PERRL/EOMI, post op pupil defect (L) Ears, Nose, Throat Exam: normal ENT inspection, moist mucous membranes Neck Exam: normal inspection, non-tender, supple, full range of motion Respiratory Exam: normal breath sounds, chest tenderness (Left side and the left shoulder anteriorly), lungs clear, airway intact, No respiratory distress Cardiovascular Exam: regular rate/rhythm, normal heart sounds, normal peripheral pulses Gastrointestinal/Abdomen Exam: soft, normal bowel sounds, tenderness (Bilateral lower quadrants), rebound, No guarding Pelvic Exam: not done Rectal Exam: not done Back Exam: normal inspection, normal range of motion, No CVA tenderness, No vertebral tenderness Extremity Exam: normal inspection, normal range of motion, pelvis stable Neurologic Exam: alert, oriented x 3, cooperative, pharmacology associate II-XII nml as tested, normal mood/affect, nml cerebellar function, nml station & gait, sensation nml Skin Exam: normal color, warm, dry Lymphatic Exam: No adenopathy SpO2 Interpretation: normal O2 Delivery: Room Air - Course Nursing assessment & vital signs reviewed: Yes EKG Interpreted by Me: RATE (89), Sinus Rhythm, NORMAL AXIS, NORMAL INTERVALS, NORMAL QRS, NORMAL ST-T, Other (No acute ischemic changes on today's twelve-lead EKG.) Ordered Tests: Active Orders 24 hr Category Date Time Status EKG-ER Only STAT Care 03/03/23 12:37 Active IV Insertion STAT Care 03/03/23 12:37 Active ABDOMEN AND PELVIS W/0 CONTRAS [CT] Stat Exams 03/03/23 12:37 Completed AMYLASE Stat Lab 03/03/23 13:15 Completed BLOOD CULTURE Stat Lab 03/03/23 13:15 Received CBC W DIFF Stat Lab 03/03/23 13:15 Completed CMP Stat Lab 03/03/23 13:15 Completed LIPASE Stat Lab 03/03/23 13:15 Completed Lactic Acid Stat Lab 03/03/23 13:22 Completed Lactic Acid Stat Lab 03/03/23 15:30 Received TROPONIN Q4H Lab 03/03/23 13:15 Completed TROPONIN Q4H Lab 03/03/23 16:45 Ordered TROPONIN Q4H Lab 03/03/23 20:45 Ordered UA W/RFX UR CULTURE Stat Lab 03/03/23 Completed Medication Summary Generic Name Dose Route Start Last Admin Trade Name Freq PRN Reason Stop Dose Admin Sodium Chloride 1,000 mls @ 999 mls/hr 03/03/23 15:17 Sodium Chloride 0.9% 1000 Ml IV 03/03/23 16:17 .Q1H1M STA Discontinued Medications Generic Name Dose Route Start Last Admin Trade Name Denise PRN Reason Stop Dose Admin Sodium Chloride 1,000 mls @ 999 mls/hr 03/03/23 12:37 03/03/23 14:31 Sodium Chloride 0.9% 1000 Ml IV 03/03/23 13:37 Infused .Q1H1M STA Infusion Sodium Chloride Confirm 03/03/23 12:43 Sodium Chloride 0.9% 1000 Ml Administered 03/03/23 12:44 Dose 1,000 mls @ ud .ROUTE .STK-MED ONE Ondansetron HCl 4 mg 03/03/23 12:37 03/03/23 12:43 Ondansetron Hcl 4 Mg/2 Ml Vial IV 03/03/23 12:38 4 mg STAT ONE Administration Ondansetron HCl Confirm 03/03/23 12:42 Ondansetron Hcl 4 Mg/2 Ml Vial Administered 03/03/23 12:43 Dose 4 mg .ROUTE .STK-MED ONE Ondansetron HCl 4 mg 03/03/23 14:35 03/03/23 14:39 Ondansetron Hcl 4 Mg/2 Ml Vial IV 03/03/23 14:36 4 mg STAT ONE Administration Ondansetron HCl Confirm 03/03/23 14:39 Ondansetron Hcl 4 Mg/2 Ml Vial Administered 03/03/23 14:40 Dose 4 mg .ROUTE .STK-MED ONE Pantoprazole Sodium 40 mg 03/03/23 12:37 03/03/23 12:43 Pantoprazole 40 Mg Vial IV 03/03/23 12:38 40 mg STAT ONE Administration Pantoprazole Sodium Confirm 03/03/23 12:43 Pantoprazole 40 Mg Vial Administered 03/03/23 12:44 Dose 40 mg IV .STK-MED ONE Lab/Rad Data: Laboratory Result Diagrams 03/03/23 13:15 03/03/23 13:15 Laboratory Results 03/03/23 03/03/23 03/03/23 Range/Units Unknown 13:37 13:22 WBC (4.0-10.5) x10^3/uL RBC (4.1-5.4) x10^6/uL Hgb (12.0-16.0) g/dL Hct (35-47) % MCV (78-100) fL MCH (26-32) pg MCHC (32-36) g/dL RDW (11.5-14.0) % Plt Count (150-450) x10^3/uL MPV (7.5-11.0) fL Gran % (36.0-66.0) % Immature Gran % (Auto) (0.00-0.4) % Nucleat RBC Rel Count (0.00-0.1) % Eos # (Auto) (0-0.5) x10^3/uL Immature Gran # (Auto) (0.00-0.03) x10^3u/L Absolute Lymphs (auto) (1.0-4.6) x10^3/uL Absolute Monos (auto) (0.0-1.3) x10^3/uL Absolute Nucleated RBC (0.00-0.01) x10^3u/L Lymphocytes % (24.0-44.0) % Monocytes % (0.0-12.0) % Eosinophils % (0.00-5.0) % Basophils % (0.0-0.4) % Absolute Granulocytes (1.4-6.9) x10^3/uL Basophils # (0-0.4) x10^3/uL Sodium (137-145) mmol/L Potassium (3.5-5.1) mmol/L Chloride (98-107) mmol/L Carbon Dioxide (22-30) mmol/L Anion Gap (5-15) MEQ/L BUN (7-17) mg/dL Creatinine (0.52-1.04) mg/dL Estimated GFR ML/MIN Glucose (74-106) mg/dL Lactic Acid 2.9 H (0.4-2.0) Calcium (8.4-10.2) mg/dL Total Bilirubin (0.2-1.3) mg/dL AST (14-36) U/L ALT (0-35) U/L Alkaline Phosphatase (38-126) U/L Troponin I (0.000-0.034) ng/mL Serum Total Protein (6.3-8.2) g/dL Albumin (3.5-5.0) g/dL Amylase (30-110) U/L Lipase (23-300) U/L Urine Color Yellow (Yellow) Urine Appearance Clear (Clear) Urine pH 5.5 (4.6-8.0) Ur Specific Loraine 1.020 (1.005-1.030) Urine Protein Negative (Negative) Urine Glucose (UA) Negative (Negative) mg/dL Urine Ketones Negative (Negative) Urine Blood Negative (Negative) Urine Nitrite Negative (Negative) Urine Bilirubin Negative (Negative) Urine Urobilinogen 0.2 (0.2) mg/dL Ur Leukocyte Esterase Negative (Negative) U Hyaline Cast (Auto) NONE SEEN (0-2) /LPF Urine Microscopic RBC 0-2 (0-5) /HPF Urine Microscopic WBC 0-2 (0-5) /HPF Ur Epithelial Cells None Seen (None Seen) /HPF Urine Bacteria Rare A (None Seen) /HPF Urine Culture Reflexed NO (NO) Influenza Type A Ag NEGATIVE (NEGATIVE) Influenza Type B Ag NEGATIVE (NEGATIVE) RSV (PCR) NEGATIVE (NEGATIVE) SARS-CoV-2 (PCR) NEGATIVE (NEGATIVE) 03/03/23 03/03/23 03/03/23 Range/Units 13:15 13:15 13:15 WBC 16.0 H (4.0-10.5) x10^3/uL RBC 4.30 (4.1-5.4) x10^6/uL Hgb 12.0 (12.0-16.0) g/dL Hct 37.7 (35-47) % MCV 87.7 (78-100) fL MCH 27.9 (26-32) pg MCHC 31.8 L (32-36) g/dL RDW 13.0 (11.5-14.0) % Plt Count 328 (150-450) x10^3/uL MPV 9.7 (7.5-11.0) fL Gran % 80.8 H (36.0-66.0) % Immature Gran % (Auto) 0.5 H (0.00-0.4) % Nucleat RBC Rel Count 0.0 (0.00-0.1) % Eos # (Auto) 0.13 (0-0.5) x10^3/uL Immature Gran # (Auto) 0.08 H (0.00-0.03) x10^3u/L Absolute Lymphs (auto) 1.88 (1.0-4.6) x10^3/uL Absolute Monos (auto) 0.94 (0.0-1.3) x10^3/uL Absolute Nucleated RBC 0.00 (0.00-0.01) x10^3u/L Lymphocytes % 11.8 L (24.0-44.0) % Monocytes % 5.9 (0.0-12.0) % Eosinophils % 0.8 (0.00-5.0) % Basophils % 0.2 (0.0-0.4) % Absolute Granulocytes 12.94 H (1.4-6.9) x10^3/uL Basophils # 0.03 (0-0.4) x10^3/uL Sodium 136 L (137-145) mmol/L Potassium 4.3 (3.5-5.1) mmol/L Chloride 101 (98-107) mmol/L Carbon Dioxide 24 (22-30) mmol/L Anion Gap 14.9 (5-15) MEQ/L BUN 16 (7-17) mg/dL Creatinine 0.64 (0.52-1.04) mg/dL Estimated GFR > 60.0 ML/MIN Glucose 213 H (74-106) mg/dL Lactic Acid (0.4-2.0) Calcium 8.3 L (8.4-10.2) mg/dL Total Bilirubin 0.50 (0.2-1.3) mg/dL AST 40 H (14-36) U/L ALT 30 (0-35) U/L Alkaline Phosphatase 141 H (38-126) U/L Troponin I < 0.012 (0.000-0.034) ng/mL Serum Total Protein 7.6 (6.3-8.2) g/dL Albumin 3.7 (3.5-5.0) g/dL Amylase 59 (30-110) U/L Lipase 59 (23-300) U/L Urine Color (Yellow) Urine Appearance (Clear) Urine pH (4.6-8.0) Ur Specific Loraine (1.005-1.030) Urine Protein (Negative) Urine Glucose (UA) (Negative) mg/dL Urine Ketones (Negative) Urine Blood (Negative) Urine Nitrite (Negative) Urine Bilirubin (Negative) Urine Urobilinogen (0.2) mg/dL Ur Leukocyte Esterase (Negative) U Hyaline Cast (Auto) (0-2) /LPF Urine Microscopic RBC (0-5) /HPF Urine Microscopic WBC (0-5) /HPF Ur Epithelial Cells (None Seen) /HPF Urine Bacteria (None Seen) /HPF Urine Culture Reflexed (NO) Influenza Type A Ag (NEGATIVE) Influenza Type B Ag (NEGATIVE) RSV (PCR) (NEGATIVE) SARS-CoV-2 (PCR) (NEGATIVE) - Progress Progress Note: 03/03/23 13:22 CAT scan of the abdomen pelvis without contrast shows sigmoid colon diverticulosis without diverticulitis. There is a normal appendix. The remainder of the CT scan of the abdomen pelvis without contrast is negative. This patient's medical issue is of moderate complexity. The level of complexity and the work-up performed is based on review of the patient's past medical history, review of the patient's medication list, review of the patient's drug allergy list, history of present illness and physical findings on examination. This patient's work-up includes a twelve-lead EKG, troponin level, amylase, lipase, CT scan of the abdomen pelvis, CBC, CMP and urinalysis as well as lactic acid level. I reviewed the work-up results thus far. Patient is receiving infusion of normal saline solution as well as Zofran medication. 03/03/23 15:51 I reviewed the test results with this patient. She informed me that she has had a longstanding history of elevated white count. She has not seen infectious disease specialist or loss prevention lead for this. She does have a left shift and I do not have a source of infection. She has not been coughing or having any shortness of breath. Therefore I am not going to perform a chest x-ray. I think the patient would benefit being placed on Levaquin 500 mg orally once a day for 7 days. She told me that once she is on antibiotic she feels a lot better but once the antibiotic treatment has completed she begins feeling poorly again. I recommend that she calls her primary care provider today to make arrangements for follow-up appointment within the next 3 days. I also told her to discuss referral to infectious disease specialist and/or loss prevention lead. Medical Desision Making - Diagnostic Testing Diagnostic test were ordered, analyzed, and reviewed by me: Yes Radiological Interpretation: Reviewed by me, Teleradiologist Report - Departure Departure Disposition: Home Clinical Impression: Leukocytosis, Vomiting and diarrhea Condition: Stable Critical Care Time: No Referrals: GENNA MCMAHAN [Primary Care Provider] - Follow up/PCP as directed Additional Instructions: Drink plenty of clear liquids. Do not advance your diet until you are taking an good amount of clear liquids and tolerating it well. Take your antibiotics as prescribed. Follow-up with your primary care provider today and make an appointment to be seen within 3 days. Discussed with your primary care provider referral to infectious disease specialist and/or loss prevention lead for persistently elevated white blood cell count. Prescriptions: Ondansetron ODT 4 MG [Zofran Odt 4 mg] 4 mg PO Q6H PRN PRN #10 tablet PRN Reason: Vomiting Metronidazole 500 mg [Flagyl 500 MG] 500 mg PO TID #21 tablet Levofloxacin [Levaquin 500 MG Tablet] 500 mg PO DAILY #7 tablet
[2023-03-03] MEDS ORDERED: Zofran 4 MG/2 ML VIAL IV ONE ×2 (12:37→14:35)
[2023-03-03] MEDS ORDERED: Sodium Chloride 0.9% 1000 ML 1,000 ML IV STA ×2 (12:37→15:17)
[2023-03-03] MEDS ORDERED: PROTONIX 40 MG IV IV ONE ×2 (12:37→12:43)
[2023-03-03] MEDS ORDERED: Zofran 4 MG/2 ML VIAL ONE ×2 (12:42→14:39)
[2023-03-03] MEDS ORDERED: Sodium Chloride 0.9% 1000 ML 1,000 ML ONE ×2 (12:43→16:13)
--- NOTE | 2023-03-03 13:17 | XRAY ---
Indication: Abdomen pain, nausea, vomiting, diarrhea. Multiple contiguous axial images obtained through the abdomen and pelvis without contrast. Comparison: April 14, 2022 Lung bases demonstrate minimal dependent atelectasis. Heart not enlarged. Noncontrasted stomach and bowel loops appear nonobstructed with normal appendix. Again minimal sigmoid diverticulosis without diverticulitis. Again 19.2 cm fatty hepatomegaly, 13.3 cm splenomegaly, and hysterectomy. No free fluid/air. Remaining liver, gallbladder, pancreas, spleen, adrenal glands, kidneys, ureters, and bladder are unremarkable for noncontrast exam. Again mild scattered aortoiliac calcifications without AAA. Osseous structures intact again with mild degenerative changes throughout the spine. Impression: 1. Again sigmoid diverticulosis, fatty hepatomegaly, splenomegaly, arteriosclerotic disease, and degenerative spondylosis. 2. Remaining CT abdomen/pelvis without contrast exam continues to be negative.
[2023-03-03 13:41] LABS: Absolute Neutrophil Ct (ANC) 12.94 x10^3/uL (1.4-6.9); BASOPHIL % 0.2 % (0.0-0.4); Basophil (Absolute #) 0.03 x10^3/uL (0-0.4); Eosinophil % 0.8 % (0.00-5.0); Eosinophil (Absolute #) 0.13 x10^3/uL (0-0.5); Hematocrit 37.7 % (35-47); IMMATURE GRAN # 0.08 x10^3u/L (0.00-0.03); IMMATURE GRAN % 0.5 % (0.00-0.4); Lymphocyte (Absolute #) 1.88 x10^3/uL (1.0-4.6); Lymphocytes % 11.8 % (24.0-44.0); Mean Cell Volume 87.7 fL (78-100); Mean Corpuscular Hemoglobin 27.9 pg (26-32); Mean Corpuscular Hgb Concent. 31.8 g/dL (32-36); Mean Platelet Volume 9.7 fL (7.5-11.0); Monocyte (Absolute #) 0.94 x10^3/uL (0.0-1.3); Monocytes % 5.9 % (0.0-12.0); Neutrophil % 80.8 % (36.0-66.0); Platelet Count 328 x10^3/uL (150-450)
[2023-03-03 13:51] LABS: ALBUMIN 3.7 g/dL (3.5-5.0); ALKALINE PHOSPHATASE 141 U/L (38-126); AMYLASE 59 U/L (30-110); ANION GAP 14.9 MEQ/L (5-15); BLOOD UREA NITROGEN 16 mg/dL (7-17); CHLORIDE 101 mmol/L (98-107); Calcium 8.3 mg/dL (8.4-10.2); Carbon Dioxide 24 mmol/L (22-30); Creatinine 1 0.64 mg/dL (0.52-1.04); EST GLOMERULAR FILTRATION RATE > 60.0 ML/MIN; Glucose 213 mg/dL (74-106); LIPASE 59 U/L (23-300); Potassium 4.3 mmol/L (3.5-5.1); SGOT/AST 40 U/L (14-36); SGPT/ALT 30 U/L (0-35); SODIUM 136 mmol/L (137-145); Total Protein 7.6 g/dL (6.3-8.2)
[2023-03-03 14:18] LABS: INFLUENZA A NEGATIVE (NEGATIVE); INFLUENZA B NEGATIVE (NEGATIVE); RESPIRATORY SYNCTIAL VIRUS NEGATIVE (NEGATIVE); SARS-CoV-2 Xpert Express NEGATIVE (NEGATIVE)
[2023-03-03 14:21] VITALS: PULSE 99
[2023-03-03 14:34] VITALS: BP 139/58; O2SAT 95
[2023-03-03 15:09] LABS: Appearance Clear (Clear); Bilirubin Negative (Negative); Blood Negative (Negative); Glucose, Urine Negative (Negative); Ketones Negative (Negative); Leukocyte Esterase Negative (Negative); Nitrite Negative (Negative); Ph 5.5 (4.6-8.0); Protein,Urine Dip Negative (Negative); Urobilinogen 0.2 mg/dL (0.2)
[2023-03-03 15:23] LABS: Bacteria Rare /HPF (None Seen); Epithelial Cells None Seen /HPF (None Seen); Hyaline Casts NONE SEEN /LPF (0-2); RBC 0-2 /HPF (0-5); WBC 0-2 /HPF (0-5)
[2023-03-03 15:27] LABS: ADD URINE CULTURE? NO (NO)
== END 2023-03-03 16:51 | disposition home or self-care (01) ==
LOC: ED 11:27
DX: R11.2 Nausea with vomiting, unspecified (principal); R19.7 Diarrhea, unspecified; D72.829 Elevated white blood cell count, unspecified; K13.79 Other lesions of oral mucosa; R51.9 Headache, unspecified; R10.30 Lower abdominal pain, unspecified; I10 Essential (primary) hypertension; E78.5 Hyperlipidemia, unspecified; E11.9 Type 2 diabetes mellitus without complications; Z79.4 Long term (current) use of insulin; Z79.85 Long-term (current) use of injectable non-insulin antidiabetic drugs; Z79.899 Other long term (current) drug therapy
CPT/HCPCS: 0241U; 36415; 74176; 80053; 81001; 82150; 83605; 83690; 84484; 85025; 87040; 93005; 96360; 96361; 96374; 96375; 96376; 99285; J2405